=== PATIENT | male | born 1990 | race Caucasian/White ===

== ENCOUNTER 2016-05-07 22:03 | Emergency (ER) | payer SELFPAY ==
--- NOTE | 2016-05-07 22:58 | ED CLINICAL REPORT ---
Clinical Report - Physicians/Mid Levels [facility] [address] [place] [address] 05/07/2016 22:03 Patient: MICHELLE MANSFIELD Time Seen: 22:25; initial patient contact, initial documentation, patient care assumed. Arrived- By private vehicle. Historian- patient. HISTORY OF PRESENT ILLNESS Chief Complaint: Injury to the left hand. The injury happened just prior to arrival. The patient sustained a laceration from a saw (chain saw). Occurred at home. Patient is experiencing moderate pain. Patient denies injury to the head or neck. No other injury. REVIEW OF SYSTEMS The patient sustained a laceration. No swelling, tingling, numbness or weakness. All systems otherwise negative, except as recorded above. PAST HISTORY See nurses notes. PROBLEMS: Fall. Cervical Strain. Contusion. Fractured Metacarpal. Immunizations. Laceration. Tetanus Status. --22:24 Juanpablo Villafana R.N. The patient's dominant hand is the left. Tetanus immunization status is up-to-date. SOCIAL HISTORY Light tobacco smoker. Regular alcohol use; consumes beer. ADDITIONAL NOTES The nursing notes have been reviewed with agreement regarding the chief complaint, HPI, ROS, PMH and patient medications and allergies. PHYSICAL EXAM Vital Signs: 05/07/2016 22:17 BP: 128/81. HR: 99. RR: 16. O2 saturation: 99%. Pain level now: 5/10. Have been reviewed as normal and appear to be correct. Temperature: 98 oral- temperature normal. Appearance: Alert. Oriented X3. Anxious. No acute distress. (strong etoh breath). Head: Head atraumatic. Eyes: Pupils equal, round and reactive to light. Eyes normal inspection. Respiratory: No respiratory distress. Skin: Skin warm and dry. Skin intact. Extremities: Hand injury present. Left palm: severe tenderness and subcutaneous 4.0 cm laceration of the distal and radial aspect of the palm. SEE LACERATION PROCEDURE NOTE #1. Neurovascular intact distally. No erythema, swelling, abrasion, ecchymosis or puncture wound. No foreign body or deformity. No limitation in movement. No wrist injury. Hand and wrist exam otherwise negative. Extremities otherwise negative. Neuro, Vascular and Tendons: Vascular status intact. Sensation intact. Motor intact. Tendon function intact. Neuro: Oriented X 3. No motor deficit. No sensory deficit. Note: isolated injury to hand. PROGRESS AND PROCEDURES Laceration Repair: Location: left hand. Length: 4 cm. Complexity: simple (local anesthesia used and sutured). Wound depth/shape- subcutaneous, linear and irregular and involving fascia. Wound is clean. No contamination, foreign body or contused tissue present. No tissue loss. Distal neuro/vascular/tendon status normal. Tendon not examined. No tendon deficit or laceration or tendon injury. Local anesthesia provided using 1% lidocaine (8 mL). Prepped with Betadine. Wound explored, cleansed, irrigated and examined to the base in bloodless field with normal saline. Closure of superficial layer: interrupted 4-0 nylon (6 sutures). Post-procedure: he is stable and there are no complications. Bleeding is controlled and neuro-vascular status is intact distal to the wound. Clean dressing applied. (per tech/nurse, see other notes, wound was cleaned out prior to suturing). Tetanus immunization up-to-date. Estimated blood loss: 5 mL. Course of Care: pt swearing during entire visit, every other word is fuck, and pt did not want sutures initially, wanted me to 'glue' it. Patient counseled in person regarding the patient's stable condition and diagnosis. Differential Diagnosis: Other possible considerations: hand lac, fb, skin avulsion, tendon injury. Above considerations are based on history and physical exam. Differential diagnosis was discussed with patient. Disposition: Discharged home in good and improved condition (22:57). Condition: good and stable. CLINICAL IMPRESSION Single deep laceration to the left hand.Treatment of laceration not delayed. No infection or foreign body present. INSTRUCTIONS Protect wound and keep wound area clean. Change dressing twice daily. Soak in warm soapy water twice daily. Apply bacitracin twice daily. Sutures should be removed in fourteen days. Warnings: GENERAL WARNINGS: Return or contact your physician immediately if your condition worsens or changes unexpectedly, if not improving as expected, or if other problems arise. Specifically return if problem worsens. Follow-up: Follow up with your doctor in about two weeks even if well and for suture removal and wound check. Call for an appointment. Summary of care provided to patient. Understanding of the discharge instructions verbalized by patient. (Electronically signed by Kristina Alvarez A.R.N.P. 05/07/2016 23:20)
--- NOTE | 2016-05-07 22:58 | ED NURSING NOTES ---
Clinical Report - Nurses [facility] [address] [place] [address] 05/07/2016 22:03 Patient: MICHELLE MANSFIELD TRIAGE Triage time 22:15 May 07 2016. Acuity: LEVEL 3. Chief Complaint: INJURY TO LEFT HAND. Alert. CHASE COMA SCORE: Chase Coma Scale: 15- eyes open spontaneously (4); best verbal response- oriented x 4 (5); best motor response- obeys commands (6). --22:26 Juanpablo Villafana R.N. 22:17 05/07/16. BP: 128/81. HR: 99. RR: 16. O2 saturation: 99%. Pain level now: 5/10. Additional comments: (L) Hand palm region. --22:26 Juanpablo Villafana R.N. 22:27 05/07/16. Temp: 98 F. --22:28 Juanpablo Villafana R.N. Weight: 72.5 kg stated. Height/Length: 71 inches Per Patient. BMI: 22.3. --22:18 Juanpablo Villafana R.N. Medications None. --22:23 Juanpablo Villafana R.N. Medication/allergy information source: the patient. --22:26 Juanpablo Villafana R.N. Allergies None. --22:23 Juanpablo Villafana R.N. History <<STRICKEN ENTRY-- Arrived by private vehicle. Historian: patient. Unaccompanied. Primary physician (none). ( (L) Hand chainsaw laceration to the palm). This occurred (about 2 months ago). Occurred at home. He sustained a laceration. Treatment CIRCULAR HEAD SAW OPERATOR: (pressure dressing applied to lac at home by pt). PAST MEDICAL HX: Tetanus status: up-to-date. Immunizations: status is unknown. SOCIAL HX: Heavy tobacco smoker (cigarette)- 1 pack per day. Alcohol use; consumes two beers a day. No drug use. No infectious disease exposure. ABUSE ASSESSMENT: No report of abuse. FALL RISK ASSESSMENT: Fall risk assessment completed. No fall risk identified. NUTRITIONAL RISK ASSESSMENT: The nutritional risk assessment revealed no deficiencies. FUNCTIONAL ASSESSMENT: Functional assessment: no impairments noted. LEARNING NEEDS ASSESSMENT: The learning needs assessment revealed no barriers. SKIN INTEGRITY ASSESSMENT: Skin integrity risk assessment completed. No skin integrity risk identified. --22:26 Juanpablo Villafana R.N. --END STRIKE>> Correction --22:29 Juanpablo Villafana R.N. Arrived by private vehicle. Historian: patient. Unaccompanied. Primary physician (none). ( (L) Hand chainsaw laceration to the palm). This occurred (about 2 hours ago). Occurred at home. He sustained a laceration. Treatment CIRCULAR HEAD SAW OPERATOR: (pressure dressing applied to lac at home by pt). PAST MEDICAL HX: Tetanus status: up-to-date. Immunizations: status is unknown. SOCIAL HX: Heavy tobacco smoker (cigarette)- 1 pack per day. Alcohol use; consumes two beers a day. No drug use. No infectious disease exposure. ABUSE ASSESSMENT: No report of abuse. FALL RISK ASSESSMENT: Fall risk assessment completed. No fall risk identified. NUTRITIONAL RISK ASSESSMENT: The nutritional risk assessment revealed no deficiencies. FUNCTIONAL ASSESSMENT: Functional assessment: no impairments noted. LEARNING NEEDS ASSESSMENT: The learning needs assessment revealed no barriers. SKIN INTEGRITY ASSESSMENT: Skin integrity risk assessment completed. No skin integrity risk identified. --22:30 Juanpablo Villafana R.N. PROBLEMS: Fall. Cervical Strain. Contusion. Fractured Metacarpal. Immunizations. Laceration. Tetanus Status. --22:24 Juanpablo Villafana R.N. Interventions ID band on patient. To treatment room. --22:26 Juanpablo Villafana R.N. PHYSICAL ASSESSMENT Ambulatory to room. GENERAL / NEURO / PSYCH: Oriented X 4. EXTREMITIES: Capillary refill is less than 2 seconds in the extremities. Extremity pulses are within normal limits. Extremities exhibit normal ROM. Left palm: laceration of the central aspect of the palm. SKIN: Skin intact. Skin is warm and dry. --22:27 Juanpablo Villafana R.N. NURSING PROGRESS NOTES Reassurance given. Patient identifiers checked. Call light placed in reach. Side rails up. Bed placed in lowest position. Brakes of bed on. Patient ready for evaluation- chart flagged and ED physician notified. --22:27 Juanpablo Villafana R.N. Applied dressing consisting of 4x4 gauze, following the application of antibiotic ointment (bacitracin). Secured with kerlix. --23:10 Deni Tyson. DISPOSITION / DISCHARGE Departure time: 23:11 May 07 2016. Condition at departure: improved. No learning barriers present. Discharge instructions provided and reviewed with the patient. Reviewed referral to a primary care physician. Patient verbalized understanding. Written instructions provided in [place]. The patient was discharged home. He left the Emergency Department ambulatory and via private vehicle. Patient driving. FALL RISK ASSESSMENT: Fall risk assessment completed. No fall risk identified. --23:11 Aby Ch R.N. 23:10 05/07/16. BP: 115/56. HR: 82. RR: 16. O2 saturation: 97%. Pain level now: 03/20. --23:11 Aby Ch R.N. Locked/Released at 05/12/2016 13:13 by Aby Ch R.N.
--- NOTE | 2016-05-07 22:58 | ED NURSING NOTES ---
Clinical Report - Nurses [facility] [address] [place] [address] 05/07/2016 22:03 Patient: MICHELLE MANSFIELD TRIAGE Triage time 22:15 May 07 2016. Acuity: LEVEL 3. Chief Complaint: INJURY TO LEFT HAND. Alert. CHASE COMA SCORE: Chase Coma Scale: 15- eyes open spontaneously (4); best verbal response- oriented x 4 (5); best motor response- obeys commands (6). --22:26 Juanpablo Villafana R.N. 22:17 05/07/16. BP: 128/81. HR: 99. RR: 16. O2 saturation: 99%. Pain level now: 5/10. Additional comments: (L) Hand palm region. --22:26 Juanpablo Villafana R.N. 22:27 05/07/16. Temp: 98 F. --22:28 Juanpablo Villafana R.N. Weight: 72.5 kg stated. Height/Length: 71 inches Per Patient. BMI: 22.3. --22:18 Juanpablo Villafana R.N. Medications None. --22:23 Juanpablo Villafana R.N. Medication/allergy information source: the patient. --22:26 Juanpablo Villafana R.N. Allergies None. --22:23 Juanpablo Villafana R.N. History <<STRICKEN ENTRY-- Arrived by private vehicle. Historian: patient. Unaccompanied. Primary physician (none). ( (L) Hand chainsaw laceration to the palm). This occurred (about 2 months ago). Occurred at home. He sustained a laceration. Treatment LOT ASSOCIATE: (pressure dressing applied to lac at home by pt). PAST MEDICAL HX: Tetanus status: up-to-date. Immunizations: status is unknown. SOCIAL HX: Heavy tobacco smoker (cigarette)- 1 pack per day. Alcohol use; consumes two beers a day. No drug use. No infectious disease exposure. ABUSE ASSESSMENT: No report of abuse. FALL RISK ASSESSMENT: Fall risk assessment completed. No fall risk identified. NUTRITIONAL RISK ASSESSMENT: The nutritional risk assessment revealed no deficiencies. FUNCTIONAL ASSESSMENT: Functional assessment: no impairments noted. LEARNING NEEDS ASSESSMENT: The learning needs assessment revealed no barriers. SKIN INTEGRITY ASSESSMENT: Skin integrity risk assessment completed. No skin integrity risk identified. --22:26 Juanpablo Villafana R.N. --END STRIKE>> Correction --22:29 Juanpablo Villafana R.N. Arrived by private vehicle. Historian: patient. Unaccompanied. Primary physician (none). ( (L) Hand chainsaw laceration to the palm). This occurred (about 2 hours ago). Occurred at home. He sustained a laceration. Treatment LOT ASSOCIATE: (pressure dressing applied to lac at home by pt). PAST MEDICAL HX: Tetanus status: up-to-date. Immunizations: status is unknown. SOCIAL HX: Heavy tobacco smoker (cigarette)- 1 pack per day. Alcohol use; consumes two beers a day. No drug use. No infectious disease exposure. ABUSE ASSESSMENT: No report of abuse. FALL RISK ASSESSMENT: Fall risk assessment completed. No fall risk identified. NUTRITIONAL RISK ASSESSMENT: The nutritional risk assessment revealed no deficiencies. FUNCTIONAL ASSESSMENT: Functional assessment: no impairments noted. LEARNING NEEDS ASSESSMENT: The learning needs assessment revealed no barriers. SKIN INTEGRITY ASSESSMENT: Skin integrity risk assessment completed. No skin integrity risk identified. --22:30 Juanpablo Villafana R.N. PROBLEMS: Fall. Cervical Strain. Contusion. Fractured Metacarpal. Immunizations. Laceration. Tetanus Status. --22:24 Juanpablo Villafana R.N. Interventions ID band on patient. To treatment room. --22:26 Juanpablo Villafana R.N. PHYSICAL ASSESSMENT Ambulatory to room. GENERAL / NEURO / PSYCH: Oriented X 4. EXTREMITIES: Capillary refill is less than 2 seconds in the extremities. Extremity pulses are within normal limits. Extremities exhibit normal ROM. Left palm: laceration of the central aspect of the palm. SKIN: Skin intact. Skin is warm and dry. --22:27 Juanpablo Villafana R.N. NURSING PROGRESS NOTES Reassurance given. Patient identifiers checked. Call light placed in reach. Side rails up. Bed placed in lowest position. Brakes of bed on. Patient ready for evaluation- chart flagged and ED physician notified. --22:27 Juanpablo Villafana R.N. Applied dressing consisting of 4x4 gauze, following the application of antibiotic ointment (bacitracin). Secured with kerlix. --23:10 Dein Tyson. DISPOSITION / DISCHARGE Departure time: 23:11 May 07 2016. Condition at departure: improved. No learning barriers present. Discharge instructions provided and reviewed with the patient. Reviewed referral to a primary care physician. Patient verbalized understanding. Written instructions provided in [place]. The patient was discharged home. He left the Emergency Department ambulatory and via private vehicle. Patient driving. FALL RISK ASSESSMENT: Fall risk assessment completed. No fall risk identified. --23:11 Aby Ch R.N. 23:10 05/07/16. BP: 115/56. HR: 82. RR: 16. O2 saturation: 97%. Pain level now: 03/20. --23:11 Aby Ch R.N. Locked/Released at 05/12/2016 13:13 by Aby Ch R.N.
--- NOTE | 2016-05-12 13:14 | ED MED RECONCILIATION SUMMARY ---
Patient: MICHELLE MANSFIELD Medication Reconciliation Report [facility] VisitID: [id number] [address] [place] [address] 25y, M Registration Date/Time: 05/07/2016 Weight: 72.5 kg Height/Length: 71 in. BMI: 22.3 ALLERGIES: None The patient's Home Medications are listed below: NONE. The source(s) of the original Home Medication information: patient The following Medications were given to the patient in the Emergency Department: None. The following Medications were prescribed to the patient: None.
--- NOTE | 2016-05-12 13:14 | ED DISCHARGE INSTRUCTIONS ---
Patient: MICHELLE MANSFIELD General Instructions [facility] VisitID: [id number] [place] [address] 25y, M Registration Date/Time: 05/07/2016 Single deep laceration to the left hand.Treatment of laceration not delayed. No infection or foreign body present. INSTRUCTIONS Protect wound and keep wound area clean. Change dressing twice daily. Soak in warm soapy water twice daily. Apply bacitracin twice daily. Sutures should be removed in fourteen days. Warnings: GENERAL WARNINGS: Return or contact your physician immediately if your condition worsens or changes unexpectedly, if not improving as expected, or if other problems arise. Specifically return if problem worsens. Follow-up: Follow up with your doctor in about two weeks even if well and for suture removal and wound check. Call for an appointment. Summary of care provided to patient. Understanding of the discharge instructions verbalized by patient. ADDITIONAL INFORMATION Laceration (All Closures) Alaceration is a cut through the skin. This will usually require stitches (sutures) or vanda if it is deep. Minor cuts may be treated with a surgical tape closure orskin glue. Home care The following guidelines will help you care for your laceration at home: Extremity, face, or trunk wounds Keep the wound clean and dry. If a bandage was applied and it becomes wet or dirty, replace it. Otherwise, leave it in place for the first 24 hours. If stitches or vanda were used, clean the wound daily. After removing the bandage, wash the area with soap and water. Use a wet cotton swab to loosen and remove any blood or crust that forms. The doctor may prescribe an antibiotic cream or ointment to prevent infection. Do not stop taking this medication until you have finished the prescribed course or the doctor tells you to stop. The doctor may also prescribe medications for pain. Follow the doctors instructions for taking these medications. You may remove the bandage to shower as usual after the first 24 hours, but do not soak the area in water (no swimming) until the stitches or vanda are removed. If surgical tape was used, keep the area clean and dry. If it becomes wet, blot it dry with a towel. If skin glue was used, do not scratch, rub, or pick at the adhesive film. Do not place tape directly over the film. Do not apply liquid, ointment, or creams to the wound while the film is in place. Do not clean the wound with peroxide and do not apply ointments. Avoid activities that cause heavy sweating until the film has fallen off. Protect the wound from prolonged exposure to sunlight or tanning lamps. You may shower as usual but do not soak the wound in water (no baths or swimming). The film will fall off by itself in 510 days. Scalp wounds During the first two days, you may carefully rinse your hair in the shower to remove blood, glass or dirt particles. After two days, you may shower and shampoo your hair normally. Do not soak your scalp in the tub or go swimming until the stitches or vanda have been removed. Talk with your doctor before applying any antibiotic ointment to the wound. Mouth wounds Eat soft foods to reduce pain. If the cut is inside of your mouth, clean by rinsing after each meal and at bedtime with a mixture of equal parts water and hydrogen peroxide (do not swallow!). Or, you can use a cotton swab to directly apply hydrogen peroxide onto the cut. Mouth wounds can be painful when eating. You may use an irkq-psm-jazfsil local numbing solution for pain relief. If this is not available, you may use any numbing solution for teething babies. You may apply this directly to the sores with a cotton-tip swab or with your finger. Follow-up care Follow up with your health care provider. Most skin wounds heal within ten days. Mouth and facial wounds heal within five days. However, even with proper treatment, a wound infection may sometimes occur. Therefore, you should check the wound daily for signs of infection listed below. Stitches should be removed from the face within five days; stitches and vanda should be removed from other parts of the body within 714 days. If dissolving stitches were used in the mouth, these will fall out or dissolve without the need for removal. If tape closures were used, remove them yourself if they have not fallen off after 7 days. Ifskin glue was used, the film will fall off by itself in 510 days. When to seek medical care Get prompt medical attention if any of these occur: Bleeding not controlled by direct pressure Signs of infection, including increasing pain in the wound, increasing wound redness or swelling, or pus coming from the wound Fever of 100.4F (38C) or higher, or as directed by your health care provider Stitches or vanda come apart or fall out or surgical tape falls off before 7 days Wound edges re-open Laceration, Extremity (Sutures, [place], Or Tape) A laceration is a cut through the skin. This will usually require stitches (sutures) or vanda if it is deep. Minor cuts may be treated with surgical tape closures. Home care The following guidelines will help you care for your laceration at home: Keep the wound clean and dry. If a bandage was applied and it becomes wet or dirty, replace it. Otherwise, leave it in place for the first 24 hours, then change it once a day or as directed. If stitches or vanda were used, clean the wound daily: After removing the bandage, wash the area with soap and water. Use a wet cotton swab to loosen and remove any blood or crust that forms. After cleaning, keep the wound clean and dry. Talk with your doctor before applying any antibiotic ointment to the wound. Reapply the bandage. You may remove the bandage to shower as usual after the first 24 hours, but do not soak the area in water (no swimming) until the stitches or vanda are removed. If surgical tape closures were used, keep the area clean and dry. If it becomes wet, blot it dry with a towel. The doctor may prescribe an antibiotic cream or ointment to prevent infection. Do not stop taking this medication until you have finished the prescribed course or the doctor tells you to stop. The doctor may also prescribe medications for pain. Follow the doctors instructions for taking these medications. If you have chronic liver or kidney disease or ever had a stomach ulcer or GI bleeding, talk with your doctor before using these medicines. Follow-up care Follow up with your health care provider. Most skin wounds heal within ten days. However, an infection may sometimes occur despite proper treatment. Therefore, check the wound daily for the signs of infection listed below. Stitches and vanda should be removed within 714 days. If surgical tape closures were used, you may remove them after 10 days, if they have not fallen off by then. Notify your doctor if you notice persistent numbness or weakness in the injured extremity. (Note:A radiologist will review any X-rays that were taken. We will notify you of any new findings that may affect your care.) When to seek medical care Get prompt medical attention if any of these occur: Increasing pain in the wound Redness, swelling, or pus coming from the wound Fever of 100.4F (38C) or higher, or as directed by your health care provider If stitches or vanda come apart or fall out before your next appointment If the surgical tape closures fall off within seven days, or the wound edges re-open Bleeding not controlled by direct pressure You have been given the following additional information: Laceration, All Laceration, Extrem (Suture, Staple, Or Tape) (Electronically signed by Kristina Alvarez A.R.N.P. 05/07/2016 23:20)
--- NOTE | 2016-05-12 13:14 | ED MAR SUMMARY ---
..... Medication Administration Record [facility] [address] [place], [place] [id number] Patient: MICHELLE MANSFIELD Visit ID: [id number] 25y, M Weight: 72.5 kg Height/Length: 71 in BMI: 22.3 ALLERGIES: None
--- NOTE | 2016-05-12 13:14 | ED MAR SUMMARY ---
..... Medication Administration Record [facility] [address] [place], [place] [id number] Patient: MICHELLE MANSFIELD Visit ID: [id number] 25y, M Weight: 72.5 kg Height/Length: 71 in BMI: 22.3 ALLERGIES: None
--- NOTE | 2016-05-12 13:14 | ED MED RECONCILIATION SUMMARY ---
Patient: MICHELLE MANSFIELD Medication Reconciliation Report [facility] VisitID: [id number] [address] [place] [place] [address] 25y, M Registration Date/Time: 05/07/2016 Weight: 72.5 kg Height/Length: 71 in. BMI: 22.3 ALLERGIES: None The patient's Home Medications are listed below: NONE. The source(s) of the original Home Medication information: patient The following Medications were given to the patient in the Emergency Department: None. The following Medications were prescribed to the patient: None.
== END 2016-05-07 23:10 | disposition home or self-care (01) ==
LOC: ED SRH 22:03
DX: S61.412A Laceration without foreign body of left hand, initial encounter (principal); W29.3XXA Contact with powered garden and outdoor hand tools and machinery, initial encounter; Y93.9 Activity, unspecified; Y92.009 Unspecified place in unspecified non-institutional (private) residence as the place of occurrence of the external cause; Y99.9 Unspecified external cause status; F17.210 Nicotine dependence, cigarettes, uncomplicated

== ENCOUNTER 2016-05-08 12:12 | Emergency (ER) | payer SELFPAY ==
--- NOTE | 2016-05-08 13:22 | ED CLINICAL REPORT ---
Clinical Report - Physicians/Mid Levels [facility] [address] [address] 05/08/2016 12:13 Patient: MICHELLE MANSFIELD Time Seen: 12:48. Arrived- By private vehicle. Historian- patient. HISTORY OF PRESENT ILLNESS Chief Complaint: (Laceration and wound check). Is still present. It was abrupt in onset. It is described as painful. It has been located on the left hand. A cause has been identified (had laceration repair yesterday). Similar symptoms previously: Recent medical care: The patient was seen recently at this facility in the emergency department. Diagnosis: (laceration repair yesterday). REVIEW OF SYSTEMS No fever, chills, cough, difficulty breathing or nausea. No vomiting. All systems otherwise negative, except as recorded above. PAST HISTORY See nurses notes. See nurses notes. PROBLEMS: Fall. Cervical Strain. Contusion. Fractured Metacarpal Laceration. Tetanus immunization status is up-to-date. SOCIAL HISTORY Smoker- current status unknown. Occasional alcohol use. ADDITIONAL NOTES The nursing notes have been reviewed. PHYSICAL EXAM Vital Signs: 05/08/2016 12:22 BP: 129/69. HR: 98. RR: 17. O2 saturation: 99%. Temp: 98.3 F. Appearance: Alert. Oriented X3. No acute distress. CVS: Normal heart rate and rhythm. Heart sounds normal. Respiratory: No respiratory distress. Breath sounds normal. Skin: Normal skin color. Normal skin turgor. Extremities: Left hand: ecchymosis, mild tenderness and swelling and laceration localized to the distal, palmar and radial aspect of the hand. (sutures in place in laceration; wound appears without signs of infection; mild decreased sensation to light touch around the wound and proximal phallanx and good distal sensation; excellent strength with flexion). No erythema or deformity. Neuro: Oriented X 3. No motor deficit. LABS, X-RAYS, AND EKG Pulse Oximetry: 05/08/2016 12:22 O2 saturation: 99%. (FIO2 - room air). Interpretation: normal. PROGRESS AND PROCEDURES Course of Care: APRIL Quiroga was also on duty today and, as she repaired the wound yesterday, she evaluated the wound again and noted it to be improved and c/w her exam from yesterday. He has had some proximal numbness, but distally there is good sensation and movement. No evident tendon lac on exam per APRIL Alvarez who examined the tendon directly, nor by my exam of function today. Patient/family counseled. Old ED records reviewed. Disposition: Discharged. Condition: stable and improved. CLINICAL IMPRESSION Wound check Laceration to the left hand.No foreign body present. INSTRUCTIONS Do not work for three days. Drink plenty of fluids. Do not smoke. Seek medical help to quit smoking. Warnings: Further evaluation is necessary in order to conduct further tests and assess the possibility of serious illness. It is very important to follow up with a physician. GENERAL WARNINGS: Return or contact your physician immediately if your condition worsens or changes unexpectedly, if not improving as expected, or if other problems arise. Follow-up with: Jermaine Restrepo M.D., Ortho, , [address], , [place], [address] Follow up in about three days. (Electronically signed by Que Neal DO 05/08/2016 17:19)
--- NOTE | 2016-05-08 13:22 | ED NURSING NOTES ---
Clinical Report - Nurses [facility] [address] [place] [address] 05/08/2016 12:13 [id number] Triage time 12:May 08 2016. Chief Complaint: LEFT UPPER EXTREMITY NUMBNESS and TINGLING. Location of symptoms- (pt seen here last night for lac to palm of left hand with glass. pt was told to come back today to have a dressing change.). Alert. No acute distress. SEPSIS SCREEN: Sepsis Screen. Negative (no infection suspected/documented). CHASE COMA SCORE: Chase Coma Scale: 15- eyes open spontaneously (4); best verbal response- oriented x 4 (5); best motor response- obeys commands (6). --12:28 Patsy Escobar R.N. 12:22 05/08/16. BP: 129/69. HR: 98. RR: 17. O2 saturation: 99%. Temp: 98.3 F. Pain level now 4/10. --12:28 Patsy Escobar R.N. Weight: 72.5 kg stated. Height/Length: 60 inches Per Patient. BMI: 31.2. --12:24 Patsy Escobar R.N. Medications None. --12:26 Patsy Escobar R.N. Allergies None. --12:26 Patsy Escobar R.N. History Arrived by private vehicle. Historian: patient. Accompanied by friend. Injury occurred. Location of injuries: left hand web space, left palm and left middle finger. This occurred last night. Occurred at home. Treatment SLIDE MAKER: None. PAST MEDICAL HX: Negative. Tetanus status: up-to-date. Immunizations: up-to-date. SURGERY HX: No history of previous surgery. SOCIAL HX: Heavy tobacco smoker (cigarette)- less than 1 pack per day. Occasional alcohol use; consumes beer occasionally. No infectious disease exposure. ABUSE ASSESSMENT: No report of abuse. SELF HARM ASSESSMENT: A self harm assessment was performed. The patient answered "no" to the question "Have you recently felt down, depressed, or hopeless?", "Have you noticed less interest or pleasure in doing things?", "Do you have thoughts of harming or killing yourself?", "Are you here because you tried to hurt yourself?", "Have you ever tried to hurt yourself before today?", "Have you recently had thoughts about harming or killing others?" and "Do you have any dangerous items in your possession?". FALL RISK ASSESSMENT: Fall risk assessment completed. No fall risk identified. NUTRITIONAL RISK ASSESSMENT: The nutritional risk assessment revealed no deficiencies. FUNCTIONAL ASSESSMENT: Functional assessment: no impairments noted. LEARNING NEEDS ASSESSMENT: The learning needs assessment revealed no barriers. SKIN INTEGRITY ASSESSMENT: Skin integrity risk assessment completed. No skin integrity risk identified. --12:28 Patsy Escobar R.N. ADDITIONAL SURGERIES: no known surgeries. Interventions ID band on patient. To treatment room. No allergy band on patient. --12:28 Patsy Escobar R.N. PHYSICAL ASSESSMENT Ambulatory to room. GENERAL / NEURO / PSYCH: Oriented X 4. Alert. Appears in no acute distress. EXTREMITIES: Limited ROM present in the left hand (to left hand). No upper extremity edema. SKIN: Skin is warm and dry. ( all intact other than wound to left palm of hand). --12:31 Patsy Escobar R.N. NURSING PROGRESS NOTES Call light placed in reach. Side rails up x 1. Bed placed in lowest position. Brakes of bed on. Patient waiting for evaluation. --12:32 Patsy Escobar R.N. Wound cleansed with sterile saline and chlorhexidine. Dressing changed. Applied clean dressing consisting of 4x4 gauze, following the application of antibiotic ointment (bacitracin). Secured with tape and kerlix. --13:28 Suma Sheets. DISPOSITION / DISCHARGE Departure time: 14:May 08 2016. Condition at departure: unchanged. ( pt here for dressing change to left palm wound). No learning barriers present. Discharge instructions provided and reviewed with concrete building assembler and the patient. Reviewed need to stop smoking- provided smoking cessation counseling. Work note given. Patient and concrete building assembler verbalized understanding. Written instructions provided in [place]. The patient was discharged by the physician. He was discharged home and accompanied by concrete building assembler. He left the Emergency Department ambulatory and via private vehicle. Bowl Turner driving. ( pt dc home, dressing placed by EDT per dr's instructions C/D/I , fingers pink with cap refill less than 3 seconds. pt encouraged to move fingers and elevate arm to decrease swelling.). --14:05 Patsy Escobar R.N. 14:02 05/08/16. BP: 121/71. HR: 84. RR: 17. O2 saturation: 99%. Temp: 98.4 F. Pain level now 4/10. --14:05 Patsy Escobar R.N. Locked/Released at 05/08/2016 14:06 by Patsy Escobar R.N.
--- NOTE | 2016-05-08 13:22 | ED NURSING NOTES ---
Clinical Report - Nurses [facility]ly [facility] [address] [place] [address] 05/08/2016 12:13 [id number] Triage time 12:May 08 2016. Chief Complaint: LEFT UPPER EXTREMITY NUMBNESS and TINGLING. Location of symptoms- (pt seen here last night for lac to palm of left hand with glass. pt was told to come back today to have a dressing change.). Alert. No acute distress. SEPSIS SCREEN: Sepsis Screen. Negative (no infection suspected/documented). CHASE COMA SCORE: Chase Coma Scale: 15- eyes open spontaneously (4); best verbal response- oriented x 4 (5); best motor response- obeys commands (6). --12:28 Patsy Escobar R.N. 12:22 05/08/16. BP: 129/69. HR: 98. RR: 17. O2 saturation: 99%. Temp: 98.3 F. Pain level now 4/10. --12:28 Patsy Escobar R.N. Weight: 72.5 kg stated. Height/Length: 60 inches Per Patient. BMI: 31.2. --12:24 Patsy Escobar R.N. Medications None. --12:26 Patsy Escobar R.N. Allergies None. --12:26 Patsy Escobar R.N. History Arrived by private vehicle. Historian: patient. Accompanied by friend. Injury occurred. Location of injuries: left hand web space, left palm and left middle finger. This occurred last night. Occurred at home. 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 PAST MEDICAL HX: Negative. Tetanus status: up-to-date. Immunizations: up-to-date. SURGERY HX: No history of previous surgery. SOCIAL HX: Heavy tobacco smoker (cigarette)- less than 1 pack per day. Occasional alcohol use; consumes beer occasionally. No infectious disease exposure. ABUSE ASSESSMENT: No report of abuse. SELF HARM ASSESSMENT: A self harm assessment was performed. The patient answered "no" to the question "Have you recently felt down, depressed, or hopeless?", "Have you noticed less interest or pleasure in doing things?", "Do you have thoughts of harming or killing yourself?", "Are you here because you tried to hurt yourself?", "Have you ever tried to hurt yourself before today?", "Have you recently had thoughts about harming or killing others?" and "Do you have any dangerous items in your possession?". FALL RISK ASSESSMENT: Fall risk assessment completed. No fall risk identified. NUTRITIONAL RISK ASSESSMENT: The nutritional risk assessment revealed no deficiencies. FUNCTIONAL ASSESSMENT: Functional assessment: no impairments noted. LEARNING NEEDS ASSESSMENT: The learning needs assessment revealed no barriers. SKIN INTEGRITY ASSESSMENT: Skin integrity risk assessment completed. No skin integrity risk identified. --12:28 Patsy Escobar R.N. ADDITIONAL SURGERIES: no known surgeries. Interventions ID band on patient. To treatment room. No allergy band on patient. --12:28 Patsy Escobar R.N. PHYSICAL ASSESSMENT Ambulatory to room. GENERAL / NEURO / PSYCH: Oriented X 4. Alert. Appears in no acute distress. EXTREMITIES: Limited ROM present in the left hand (to left hand). No upper extremity edema. SKIN: Skin is warm and dry. ( all intact other than wound to left palm of hand). --12:31 Patsy Escobar R.N. NURSING PROGRESS NOTES Call light placed in reach. Side rails up x 1. Bed placed in lowest position. Brakes of bed on. Patient waiting for evaluation. --12:32 Patsy Escobar R.N. Wound cleansed with sterile saline and chlorhexidine. Dressing changed. Applied clean dressing consisting of 4x4 gauze, following the application of antibiotic ointment (bacitracin). Secured with tape and kerlix. --13:28 Suma Sheets. DISPOSITION / DISCHARGE Departure time: 14:May 08 2016. Condition at departure: unchanged. ( pt here for dressing change to left palm wound). No learning barriers present. 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 Reviewed need to stop smoking- provided smoking cessation counseling. Work note given. Patient and steaming machine operator verbalized understanding. Written instructions provided in Panamanian. The patient was discharged by the physician. He was discharged home and accompanied by steaming machine operator. He left the Emergency Department ambulatory and via private vehicle. [employer] driving. ( pt dc home, dressing placed by EDT per dr's instructions C/D/I , fingers pink with cap refill less than 3 seconds. pt encouraged to move fingers and elevate arm to decrease swelling.). --14:05 Patsy Escobar R.N. 14:02 05/08/16. BP: 121/71. HR: 84. RR: 17. O2 saturation: 99%. Temp: 98.4 F. Pain level now 4/10. --14:05 Patsy Escobar R.N. Locked/Released at 05/08/2016 14:06 by Patsy Escobar R.N.
--- NOTE | 2016-05-08 13:22 | ED ORDER SUMMARY ---
..... Patient: MICHELLE MANSFIELD OrderSheet [facility] VisitID: [id number] [address] [place] [address] 25y, M Registration Date/Time: 05/08/2016 ORDER SHEET Weight: 72.5 kg (stated) Allergies: None GENERAL ORDERS: Dress Wounds (with bacitracin) (12:51 05/08/2016 Jasiel VEE) (13:28 [facility]) MEDICATION ORDERS: IV FLUIDS: ORDER SHEET NOTES: [Electronically signed by Patsy Escobar R.N. (14:06 05/08/2016)] [Electronically signed by Que Neal DO (17:19 05/08/2016)] [Electronically locked/signed by Patsy Escobar R.N. (14:06 05/08/2016)]
--- NOTE | 2016-05-08 13:22 | ED ORDER SUMMARY ---
..... Patient: MICHELLE MANSFIELD OrderSheet [facility] VisitID: [id number] [address] [place] [place] [address] 25y, M Registration Date/Time: 05/08/2016 ORDER SHEET Weight: 72.5 kg (stated) Allergies: None GENERAL ORDERS: Dress Wounds (with bacitracin) (12:51 05/08/2016 Jasiel VEE) (13:28 [facility]) MEDICATION ORDERS: IV FLUIDS: ORDER SHEET NOTES: [Electronically signed by Patsy Escobar R.N. (14:06 05/08/2016)] [Electronically signed by Que Neal DO (17:19 05/08/2016)] [Electronically locked/signed by Patsy Escobar R.N. (14:06 05/08/2016)]
--- NOTE | 2016-05-08 13:22 | ED CLINICAL REPORT ---
Clinical Report - Physicians/Mid Levels [facility] [address] [place] [place] [address] 05/08/2016 12:13 Patient: MICHELLE MANSFIELD Time Seen: 12:48. Arrived- By private vehicle. Historian- patient. HISTORY OF PRESENT ILLNESS Chief Complaint: (Laceration and wound check). Is still present. It was abrupt in onset. It is described as painful. It has been located on the left hand. A cause has been identified (had laceration repair yesterday). Similar symptoms previously: Recent medical care: The patient was seen recently at this facility in the emergency department. Diagnosis: (laceration repair yesterday). REVIEW OF SYSTEMS No fever, chills, cough, difficulty breathing or nausea. No vomiting. All systems otherwise negative, except as recorded above. PAST HISTORY See nurses notes. See nurses notes. PROBLEMS: Fall. Cervical Strain. Contusion. Fractured Metacarpal Laceration. Tetanus immunization status is up-to-date. SOCIAL HISTORY Smoker- current status unknown. Occasional alcohol use. ADDITIONAL NOTES The nursing notes have been reviewed. PHYSICAL EXAM Vital Signs: 05/08/2016 12:22 BP: 129/69. HR: 98. RR: 17. O2 saturation: 99%. Temp: 98.3 F. Appearance: Alert. Oriented X3. No acute distress. CVS: Normal heart rate and rhythm. Heart sounds normal. Respiratory: No respiratory distress. Breath sounds normal. Skin: Normal skin color. Normal skin turgor. Extremities: Left hand: ecchymosis, mild tenderness and swelling and laceration localized to the distal, palmar and radial aspect of the hand. (sutures in place in laceration; wound appears without signs of infection; mild decreased sensation to light touch around the wound and proximal phallanx and good distal sensation; excellent strength with flexion). No erythema or deformity. Neuro: Oriented X 3. No motor deficit. LABS, X-RAYS, AND EKG Pulse Oximetry: 05/08/2016 12:22 O2 saturation: 99%. (FIO2 - room air). Interpretation: normal. PROGRESS AND PROCEDURES Course of Care: APRIL Quiroga was also on duty today and, as she repaired the wound yesterday, she evaluated the wound again and noted it to be improved and c/w her exam from yesterday. He has had some proximal numbness, but distally there is good sensation and movement. No evident tendon lac on exam per APRIL Alvarez who examined the tendon directly, nor by my exam of function today. Patient/family counseled. Old ED records reviewed. Disposition: Discharged. Condition: stable and improved. CLINICAL IMPRESSION Wound check Laceration to the left hand.No foreign body present. INSTRUCTIONS Do not work for three days. Drink plenty of fluids. Do not smoke. Seek medical help to quit smoking. Warnings: Further evaluation is necessary in order to conduct further tests and assess the possibility of serious illness. It is very important to follow up with a physician. GENERAL WARNINGS: Return or contact your physician immediately if your condition worsens or changes unexpectedly, if not improving as expected, or if other problems arise. Follow-up with: Jermaine Restrepo M.D., Ortho, , [address], , [place], [id number] Follow up in about three days. (Electronically signed by Que Neal DO 05/08/2016 17:19)
--- NOTE | 2016-05-08 17:19 | ED MED RECONCILIATION SUMMARY ---
Patient: MICHELLE MANSFIELD Medication Reconciliation Report [facility] VisitID: [id number] [address] [place] [address] 25y, M Registration Date/Time: 05/08/2016 Weight: 72.5 kg Height/Length: 60 in. BMI: 31.2 ALLERGIES: None The patient's Home Medications are listed below: NONE. The source(s) of the original Home Medication information: Not obtained. The following Medications were given to the patient in the Emergency Department: None. The following Medications were prescribed to the patient: None.
--- NOTE | 2016-05-08 17:19 | ED MAR SUMMARY ---
..... Medication Administration Record [facility] [address] [place], [place] [id number] Patient: MICHELLE MANSFIELD Visit ID: [id number] 25y, M Weight: 72.5 kg Height/Length: 60 in BMI: 31.2 ALLERGIES: None
--- NOTE | 2016-05-08 17:19 | ED MAR SUMMARY ---
..... Medication Administration Record [facility] [address] [place], [place] [id number] Patient: MICHELLE MANSFIELD Visit ID: [id number] 25y, M Weight: 72.5 kg Height/Length: 60 in BMI: 31.2 ALLERGIES: None
--- NOTE | 2016-05-08 17:19 | ED DISCHARGE INSTRUCTIONS ---
Patient: MICHELLE MANSFIELD General Instructions [facility] VisitID: [id number] [address] [place] [address] 25y, M Registration Date/Time: 05/08/2016 Wound check Laceration to the left hand.No foreign body present. INSTRUCTIONS Do not work for three days. Drink plenty of fluids. Do not smoke. Seek medical help to quit smoking. Warnings: Further evaluation is necessary in order to conduct further tests and assess the possibility of serious illness. It is very important to follow up with a physician. GENERAL WARNINGS: Return or contact your physician immediately if your condition worsens or changes unexpectedly, if not improving as expected, or if other problems arise. Follow-up with: Jermaine Restrepo M.D., [facility], , [address], [place], [address] Follow up in about three days. ADDITIONAL INFORMATION Laceration, Extremity (Sutures, Val, Or Tape) A laceration is a cut through the skin. This will usually require stitches (sutures) or val if it is deep. Minor cuts may be treated with surgical tape closures. Home care The following guidelines will help you care for your laceration at home: Keep the wound clean and dry. If a bandage was applied and it becomes wet or dirty, replace it. Otherwise, leave it in place for the first 24 hours, then change it once a day or as directed. If stitches or val were used, clean the wound daily: After removing the bandage, wash the area with soap and water. Use a wet cotton swab to loosen and remove any blood or crust that forms. After cleaning, keep the wound clean and dry. Talk with your doctor before applying any antibiotic ointment to the wound. Reapply the bandage. You may remove the bandage to shower as usual after the first 24 hours, but do not soak the area in water (no swimming) until the stitches or val are removed. If surgical tape closures were used, keep the area clean and dry. If it becomes wet, blot it dry with a towel. The doctor may prescribe an antibiotic cream or ointment to prevent infection. Do not stop taking this medication until you have finished the prescribed course or the doctor tells you to stop. The doctor may also prescribe medications for pain. Follow the doctors instructions for taking these medications. If you have chronic liver or kidney disease or ever had a stomach ulcer or GI bleeding, talk with your doctor before using these medicines. Follow-up care Follow up with your health care provider. Most skin wounds heal within ten days. However, an infection may sometimes occur despite proper treatment. Therefore, check the wound daily for the signs of infection listed below. Stitches and val should be removed within 714 days. If surgical tape closures were used, you may remove them after 10 days, if they have not fallen off by then. Notify your doctor if you notice persistent numbness or weakness in the injured extremity. (Note:A radiologist will review any X-rays that were taken. We will notify you of any new findings that may affect your care.) When to seek medical care Get prompt medical attention if any of these occur: Increasing pain in the wound Redness, swelling, or pus coming from the wound Fever of 100.4F (38C) or higher, or as directed by your health care provider If stitches or val come apart or fall out before your next appointment If the surgical tape closures fall off within seven days, or the wound edges re-open Bleeding not controlled by direct pressure Wound Check, No Infection Your laceration is healing as expected. There is no infection. Home care The following guidelines will help you care for your wound at home: Keep the wound clean and dry. If you were given a bandage, you may change it daily as follows: After removing the bandage, wash the area with soap and water. Use a wet cotton swab to loosen and remove any blood or crust that forms. After cleaning, apply a thin layer of antibiotic ointment. This will keep the wound clean and make it easier to remove the stitches. Reapply a fresh bandage. You may remove the bandage to shower as usual after the first 24 hours, but do not soak the area in water (no swimming) until the sutures are removed. If surgical tape was used, keep the area clean and dry. If it becomes wet, blot it dry with a towel. Follow-up care If sutures or val are in place, it is important to keep your appointment for removal. If they are left in place too long permanent zazueta may remain. If surgical tape closures were applied, you may remove them yourself if they have not fallen of by 10 days after the injury. When to seek medical care Get prompt medical attention if any of the following occur: Increasing pain in the wound Redness, swelling, or pus coming from the wound Fever of 100.4F (38C) or higher, or as directed by your health care provider If sutures or val come apart or fall out before your next appointment If the surgical tape closures fall off within seven days, or the wound edges re-open How To Quit Smoking Smoking is one of the hardest habits to break. About half of all those who have ever smoked have been able to quit, and most of those (about 70%) who still smoke want to quit. Here are some of the best ways to stop smoking. Keep Trying: It takes most smokers about 8 tries before they are finally able to fully quit. So, the more often you try and fail, the better your chance of quitting the next time! So, don't give up! Go Cold [place]: Most ex-smokers quit cold turkey. Trying to cut back gradually doesn't seem to work as well, perhaps because it continues the smoking habit. Also, it is possible to fool yourself by inhaling more while smoking fewer cigarettes. This results in the same amount of nicotine in your body! Get Support: Support programs can make an important difference, especially for the heavy smoker. These groups offer lectures, methods to change your behavior and peer support. Call the free national Quitline for more information. 956-AUTU-BHR (433-244-2618). Low-cost or free programs are offered by many hospitals, local chapters of the [place] [employer] (220-347-5166) and the [place] [employer] (676-642-1234). Support at home is important too. Non-smokers can help by offering praise and encouragement. If the smoker fails to quit, encourage them to try again! Ebnq-Zgc-Inezmak Medicines: For those who can't quit on their own, Nicotine Replacement Therapy (NRT) may make quitting much easier. Certain aids such as the nicotine patch, gum and lozenge are available without a prescription. However, it is best to use these under the guidance of your doctor. The skin patch provides a steady supply of nicotine to the body. Nicotine gum and lozenge gives temporary bursts of low levels of nicotine. Both methods take the edge off the craving for cigarettes. WARNING: If you feel symptoms of nicotine overdose, such as nausea, vomiting, dizziness, weakness, or fast heartbeat, stop using these and see your doctor. Prescription Medicines: After evaluating your smoking patterns and prior attempts at quitting, your doctor may offer a prescription medicine such as bupropion (Zyban, Wellbutrin), varenicline (Chantix, Champix), a niocotine inhaler or nasal spray. Each has its unique advantage and side effects which your doctor can review with you. Health Benefits Of Quitting: The benefits of quitting start right away and keep improving the longer you go without smokin minutes: blood pressure and pulse return to normal 8 hours: oxygen levels return to normal 2 days: ability to smell and taste begins to improve as damaged nerves start to regrow 2-3 weeks: circulation and lung function improves 1-9 months: decreased cough, congestion and shortness of breath; less tired 1 year: risk of heart attack decreases by half 5 years: risk of lung cancer decreases by half; risk of stroke becomes the same as a non-smoker For information about how to quit smoking, visit the following links: National Cancer [place] , Clearing the Air, Quit Smoking Today - an online booklet. http://www.smokefree.gov/pubs/clearing_the_air.pdf Smokefree.gov http://smokefree.gov/ QuitNet http://www.quitnet.com/ You have been given the following additional information: Laceration, Extrem (Suture, Staple, Or Tape) Wound Check, Lac F/U (No Infection) Smoking Cessation Do not work for three days. (Electronically signed by Que Neal DO 05/08/2016 17:19)
--- NOTE | 2016-05-08 17:19 | ED DISCHARGE INSTRUCTIONS ---
Patient: MICHELLE MANSFIELD General Instructions [facility] VisitID: [id number] [address] [place] [address] 25y, M Registration Date/Time: 05/08/2016 Wound check Laceration to the left hand.No foreign body present. INSTRUCTIONS Do not work for three days. Drink plenty of fluids. Do not smoke. Seek medical help to quit smoking. Warnings: Further evaluation is necessary in order to conduct further tests and assess the possibility of serious illness. It is very important to follow up with a physician. GENERAL WARNINGS: Return or contact your physician immediately if your condition worsens or changes unexpectedly, if not improving as expected, or if other problems arise. Follow-up with: Jermaine Restrepo M.D., [facility], , [address] [place], [place], [address] Follow up in about three days. ADDITIONAL INFORMATION Laceration, Extremity (Sutures, Val, Or Tape) A laceration is a cut through the skin. This will usually require stitches (sutures) or val if it is deep. Minor cuts may be treated with surgical tape closures. Home care The following guidelines will help you care for your laceration at home: Keep the wound clean and dry. If a bandage was applied and it becomes wet or dirty, replace it. Otherwise, leave it in place for the first 24 hours, then change it once a day or as directed. If stitches or val were used, clean the wound daily: After removing the bandage, wash the area with soap and water. Use a wet cotton swab to loosen and remove any blood or crust that forms. After cleaning, keep the wound clean and dry. Talk with your doctor before applying any antibiotic ointment to the wound. Reapply the bandage. You may remove the bandage to shower as usual after the first 24 hours, but do not soak the area in water (no swimming) until the stitches or val are removed. If surgical tape closures were used, keep the area clean and dry. If it becomes wet, blot it dry with a towel. The doctor may prescribe an antibiotic cream or ointment to prevent infection. Do not stop taking this medication until you have finished the prescribed course or the doctor tells you to stop. The doctor may also prescribe medications for pain. Follow the doctors instructions for taking these medications. If you have chronic liver or kidney disease or ever had a stomach ulcer or GI bleeding, talk with your doctor before using these medicines. Follow-up care Follow up with your health care provider. Most skin wounds heal within ten days. However, an infection may sometimes occur despite proper treatment. Therefore, check the wound daily for the signs of infection listed below. Stitches and val should be removed within 714 days. If surgical tape closures were used, you may remove them after 10 days, if they have not fallen off by then. Notify your doctor if you notice persistent numbness or weakness in the injured extremity. (Note:A radiologist will review any X-rays that were taken. We will notify you of any new findings that may affect your care.) When to seek medical care Get prompt medical attention if any of these occur: Increasing pain in the wound Redness, swelling, or pus coming from the wound Fever of 100.4F (38C) or higher, or as directed by your health care provider If stitches or val come apart or fall out before your next appointment If the surgical tape closures fall off within seven days, or the wound edges re-open Bleeding not controlled by direct pressure Wound Check, No Infection Your laceration is healing as expected. There is no infection. Home care The following guidelines will help you care for your wound at home: Keep the wound clean and dry. If you were given a bandage, you may change it daily as follows: After removing the bandage, wash the area with soap and water. Use a wet cotton swab to loosen and remove any blood or crust that forms. After cleaning, apply a thin layer of antibiotic ointment. This will keep the wound clean and make it easier to remove the stitches. Reapply a fresh bandage. You may remove the bandage to shower as usual after the first 24 hours, but do not soak the area in water (no swimming) until the sutures are removed. If surgical tape was used, keep the area clean and dry. If it becomes wet, blot it dry with a towel. Follow-up care If sutures or val are in place, it is important to keep your appointment for removal. If they are left in place too long permanent zazueta may remain. If surgical tape closures were applied, you may remove them yourself if they have not fallen of by 10 days after the injury. When to seek medical care Get prompt medical attention if any of the following occur: Increasing pain in the wound Redness, swelling, or pus coming from the wound Fever of 100.4F (38C) or higher, or as directed by your health care provider If sutures or val come apart or fall out before your next appointment If the surgical tape closures fall off within seven days, or the wound edges re-open How To Quit Smoking Smoking is one of the hardest habits to break. About half of all those who have ever smoked have been able to quit, and most of those (about 70%) who still smoke want to quit. Here are some of the best ways to stop smoking. Keep Trying: It takes most smokers about 8 tries before they are finally able to fully quit. So, the more often you try and fail, the better your chance of quitting the next time! So, don't give up! Go Cold [place]: Most ex-smokers quit cold turkey. Trying to cut back gradually doesn't seem to work as well, perhaps because it continues the smoking habit. Also, it is possible to fool yourself by inhaling more while smoking fewer cigarettes. This results in the same amount of nicotine in your body! Get Support: Support programs can make an important difference, especially for the heavy smoker. These groups offer lectures, methods to change your behavior and peer support. Call the free national Quitline for more information. 192-HCTM-YNA (654-795-7602). Low-cost or free programs are offered by many hospitals, local chapters of the [place] [employer] (660-903-5996) and the [place] [employer] (673-715-0825). Support at home is important too. Non-smokers can help by offering praise and encouragement. If the smoker fails to quit, encourage them to try again! Ktxc-Pcg-Dgotjua Medicines: For those who can't quit on their own, Nicotine Replacement Therapy (NRT) may make quitting much easier. Certain aids such as the nicotine patch, gum and lozenge are available without a prescription. However, it is best to use these under the guidance of your doctor. The skin patch provides a steady supply of nicotine to the body. Nicotine gum and lozenge gives temporary bursts of low levels of nicotine. Both methods take the edge off the craving for cigarettes. WARNING: If you feel symptoms of nicotine overdose, such as nausea, vomiting, dizziness, weakness, or fast heartbeat, stop using these and see your doctor. Prescription Medicines: After evaluating your smoking patterns and prior attempts at quitting, your doctor may offer a prescription medicine such as bupropion (Zyban, Wellbutrin), varenicline (Chantix, Champix), a niocotine inhaler or nasal spray. Each has its unique advantage and side effects which your doctor can review with you. Health Benefits Of Quitting: The benefits of quitting start right away and keep improving the longer you go without smokin minutes: blood pressure and pulse return to normal 8 hours: oxygen levels return to normal 2 days: ability to smell and taste begins to improve as damaged nerves start to regrow 2-3 weeks: circulation and lung function improves 1-9 months: decreased cough, congestion and shortness of breath; less tired 1 year: risk of heart attack decreases by half 5 years: risk of lung cancer decreases by half; risk of stroke becomes the same as a non-smoker For information about how to quit smoking, visit the following links: National Cancer [place] , Clearing the Air, Quit Smoking Today - an online booklet. http://www.smokefree.gov/pubs/clearing_the_air.pdf Smokefree.gov http://smokefree.gov/ QuitNet http://www.quitnet.com/ You have been given the following additional information: Laceration, Extrem (Suture, Staple, Or Tape) Wound Check, Lac F/U (No Infection) Smoking Cessation Do not work for three days. (Electronically signed by Que Neal DO 05/08/2016 17:19)
--- NOTE | 2016-05-08 17:19 | ED MED RECONCILIATION SUMMARY ---
Patient: MICHELLE MANSFIELD Medication Reconciliation Report [facility] VisitID: [id number] [address] [place] [address] 25y, M Registration Date/Time: 05/08/2016 Weight: 72.5 kg Height/Length: 60 in. BMI: 31.2 ALLERGIES: None The patient's Home Medications are listed below: NONE. The source(s) of the original Home Medication information: Not obtained. The following Medications were given to the patient in the Emergency Department: None. The following Medications were prescribed to the patient: None.
== END 2016-05-08 14:01 | disposition home or self-care (01) ==
LOC: ED SRH 12:12
DX: S61.412D Laceration without foreign body of left hand, subsequent encounter (principal); X58.XXXD Exposure to other specified factors, subsequent encounter; Y93.89 Activity, other specified; Y92.009 Unspecified place in unspecified non-institutional (private) residence as the place of occurrence of the external cause; Y99.9 Unspecified external cause status; F17.210 Nicotine dependence, cigarettes, uncomplicated